=== PATIENT | male | born 1965 | race Two or more races ===

== ENCOUNTER 2021-01-21 13:04 | Emergency (ER) | payer OTHER ==
[2021-01-21 13:08] VITALS: TEMP 98.2; BMI 27.8
[2021-01-21 14:59] LABS: BASO % 0.7 % (0-2.0); HEMATOCRIT 40.4 % (35.4-49); HEMOGLOBIN 13.2 GM/dL (11.7-16.9); LYMPH % 35.6 % (8-40); MCH 26.8 pg (25.7-33.7); MCHC 32.7 g/dl (32.0-35.9); MEAN CELL VOLUME 82.1 fl (80-96); MEAN PLT VOLUME 7.8 fl (7.5-11.1); MONO % 9.4 % (3.8-10.2); NEUT % 52.3 % (42.8-82.8); PLATELET COUNT 276 K/MM3 (134-434); RBC 4.92 M/mm3 (4.00-5.60); RDW 13.9 % (11.9-15.9); WHITE BLOOD COUNT 5.7 K/mm3 (4.0-10.0)
[2021-01-21 15:21] LABS: CHLORIDE 106 mmol/L (98-107); SODIUM 138 mmol/L (136-145)
[2021-01-21 15:24] LABS: CALCIUM 8.8 mg/dL (8.5-10.1)
[2021-01-21 15:25] LABS: ALBUMIN 4.1 g/dl (3.4-5.0); ANION GAP 5 MMOL/L (8-16); BLOOD UREA NITROGEN 14.3 mg/dL (7-18); CO2 27 mmol/L (21-32); GLUCOSE,RANDOM 84 mg/dL (74-106); MAGNESIUM 2.1 mg/dL (1.8-2.4)
[2021-01-21 15:28] LABS: SGOT/AST 38 U/L (15-37); SGPT/ALT 33 U/L (13-61)
[2021-01-21 15:30] LABS: BILIRUBIN,TOTAL 0.5 mg/dL (0.2-1); TOT PROT 7.6 g/dl (6.4-8.2)
[2021-01-21 15:31] LABS: ALK PHOS 56 U/L (45-117)
[2021-01-21 16:25] VITALS: BP 136/86; PULSE 87
== END 2021-01-21 16:30 | disposition home or self-care (01) ==
LOC: JER 13:04
DX: R07.89 Other chest pain (principal)
CPT/HCPCS: 36415; 71045-TC-FY; 80053; 82550; 82553; 83735; 84484; 85025; 93005; 93010; 99284-25